=== PATIENT | female | born 1950 | race Two or more races ===

== ENCOUNTER 2024-02-11 01:15 | Inpatient (IN) | payer MEDICARE, BC, SELFPAY ==
[2024-02-11] VITALS (18 sets, daily range): BP systolic 70–121; BP diastolic 27–57; PULSE 73–114; RESP 17–23; TEMP 36.3–39.2; O2SAT 92–100; BMI 29.2
--- NOTE | ~2024-02-11 | CT_ITS ---
EXAMINATION: CT ABDOMEN AND PELVIS WITHOUT CONTRAST CLINICAL INFORMATION: Reason for Exam renal failure, FTT, suspect mets from breast cance COMPARISON: None available. TECHNIQUE: Multidetector volumetric imaging was performed from the superior aspect of the liver through the pubic symphysis. Sagittal and coronal reformatted images were obtained on the technologist's workstation. This CT examination was performed using dose optimization techniques as appropriate, variously including the following: *Automated exposure control *Adjustment of mA and/or kV according to patient size (this includes techniques or standardized protocols for targeted exams where dose is matched to indication/reason for exam; i.e. extremities or head) *Use of iterative reconstruction technique DLP: 1517 mGy-cm FINDINGS: Limited evaluation especially of the upper abdomen due to motion artifact. LUNG BASES: There is elevation of the left hemidiaphragm with adjacent parenchymal opacity which is not adequately assessed without intravenous contrast. A somewhat rounded structure in the posterior left lower lobe measuring up to 3 cm is concerning for a possible mass. LIVER, GALLBLADDER, AND BILIARY TREE: Suboptimal assessment of the liver for masses without intravenous contrast. Branching lucency is present predominantly in the left lobe and to a lesser degree in the right lobe, and in the setting of motion artifact and lack of intravenous contrast it cannot be definitively determine whether this represents pneumobilia or portal venous gas. Gallbladder is not visualized. PANCREAS: Unremarkable. SPLEEN: Unremarkable. ADRENAL GLANDS: Unremarkable. KIDNEYS AND URETERS: No hydronephrosis or obstructing calculus bilaterally. Left renal hypodensity measuring up to 3.3 cm is suspected to represent a cyst; no follow-up recommended. BLADDER: Mildly distended and suboptimally evaluated. GASTROINTESTINAL TRACT: Colonic diverticulosis is noted. No evidence of bowel obstruction or definite wall thickening, with assessment limited in some regions due to incomplete distention. The appendix is unremarkable. No free fluid or free air is seen. ABDOMINAL WALL: Peripherally calcified densities in the bilateral breasts, favored to be chronic. Partially visualized skin defect in the lower lateral right chest wall with thickening. LYMPH NODES: Normal. VASCULAR: Scattered atherosclerotic calcifications. PELVIC VISCERA: There is a predominantly cystic mass in the left adnexa containing some hyperdense components along the superior aspect. Overall this measures up to approximately 10 cm in diameter it is suspicious for an ovarian mass. OSSEOUS STRUCTURES: Degenerative changes are noted in the spine. CT/CT abdomen pelvis wo IV con IMPRESSION: 1. Limited evaluation especially of the upper abdomen due to motion artifact and lack of intravenous contrast. 2. Partially visualized skin defect in the lower lateral right chest wall. Correlation with physical exam is recommended. This could reflect changes of soft tissue infection versus sequelae of the reported history of breast cancer. 3. Branching lucency in the liver, predominantly in the left lobe, which is difficult to determine whether this is pneumobilia or portal venous gas. 4. Large predominantly cystic mass in the left adnexa measuring up to 10 cm, suspicious for an ovarian mass containing some solid components. Recommend gynecological consult and consideration of unenhanced and IV contrast-enhanced MRI of the pelvis as clinically warranted. 5. Elevation of the left hemidiaphragm with adjacent parenchymal opacity suboptimally assessed without intravenous contrast. However, there is a rounded structure in the left lower lobe measuring up to 3 cm, concerning for a possible mass. Electronically signed by: Leandro Maloney MD 02/11/2024 03:52 AM EDT
--- NOTE | ~2024-02-11 | CT_ITS ---
EXAMINATION: CT HEAD WITHOUT CONTRAST CLINICAL INFORMATION: Reason for Exam AMS, fevers, suspect mets from breast cancer COMPARISON: None available. TECHNIQUE: Contiguous axial imaging was performed from the skull base to vertex without intravenous administration of contrast. This CT examination was performed using dose optimization techniques as appropriate, variously including the following: *Automated exposure control *Adjustment of mA and/or kV according to patient size (this includes techniques or standardized protocols for targeted exams where dose is matched to indication/reason for exam; i.e. extremities or head) *Use of iterative reconstruction technique DLP: 1517 mGy-cm FINDINGS: Suboptimal assessment in the absence of intravenous contrast. However, a centrally hypoattenuating mass is present in the right cerebral hemisphere in the region of the external capsule and basal ganglia measuring up to approximately 2.2 cm in diameter. There is slight localized mass effect and suggestion of minimal leftward midline shift. There is soft tissue fullness in the suprasellar region measuring approximately 1.5 similar in diameter, suspicious for a suprasellar mass. There is no evidence of acute intracranial hemorrhage or territorial infarction. Garces to white matter differentiation is well preserved. No extra-axial fluid collections are identified. The ventricles are normal in size. Mild volume loss is noted. The osseous structures and soft tissues are normal. The mastoid air cells and visualized portions of the paranasal sinuses are well-aerated. CT/CT head/brain wo IV con IMPRESSION: 1. Centrally hypoattenuating mass in the right cerebral hemisphere measuring up to approximately 2.2 cm in diameter, suspicious for metastasis given the history of breast cancer. Overall, evaluation for masses would be better performed with pre and postcontrast MRI. 2. Soft tissue fullness in the suprasellar region measuring approximately 1.5 cm, suspicious for a suprasellar mass. This would also be better assessed with MRI. Electronically signed by: Leandro Maloney MD 02/11/2024 04:11 AM EDT
--- NOTE | ~2024-02-11 | XR_ITS ---
EXAMINATION: XR CHEST CLINICAL INFORMATION: Fever COMPARISON: None available. TECHNIQUE: Frontal view of the chest was obtained. FINDINGS: Right IJ port catheter tip lies in the region of the cavoatrial junction. There is elevation of the left hemidiaphragm with adjacent opacification. Trace left pleural effusion cannot be excluded. No focal consolidation identified in the right lung. No evidence of pneumothorax. Cardiac silhouette appears somewhat prominent though it is suboptimally assessed due to the left basilar opacification. Degenerative changes are noted in the spine. XR/XR chest 1V IMPRESSION: Elevated left hemidiaphragm with adjacent opacity which may reflect atelectasis or consolidation. Trace left pleural effusion cannot be excluded. Electronically signed by: Leandro Maloney MD 02/11/2024 03:24 AM EDT
--- NOTE | 2024-02-11 01:29 | ECG_ITS ---
Test Reason : WEAKNESS Blood Pressure : / mmHG Vent. Rate : 108 BPM Atrial Rate : 108 BPM P-R Int : 120 ms QRS Dur : 126 ms QT Int : 414 ms P-R-T Axes : 059 -23 034 degrees QTc Int : 554 ms Sinus tachycardia Right bundle branch block Abnormal ECG No previous ECGs available Referred By: Jennifer Diaz Electronically Signed By:EVANGELINA PEREZ
--- NOTE | 2024-02-11 01:40 | ED.AMS ---
HPI - Altered Mental Status General Chief Complaint: Altered Mental Status Stated Complaint: AMS 1 hr, UTI?, Tachy Source: family and EMS Mode of arrival: EMS Limitations: altered mental status History of Present Illness ED Provider: MARIZA HPI narrative: 73 yo female with PMH of HTN, breast cancer with R breast open draining wound she did chemo in 2019 in [place] but refused further XRT and therapy after has not followed up since then here with family after arriving back from [place] 5 hours ago. She was more confused yesterday. Family noted about 2 hours prior to arrival she started to shake and grab her head. She was more confused and initally refused care but then they called 911. EMS states she was hypotensive 70/40s and responded with a small amount of fluid. Patient altered on arrival cannot provide history MD complaint: altered mental status and weakness Onset (ago): day(s) (1) Timing confirmed by: family member Severity: moderate Consistency of symptoms: constant Context: cancer Associated symptoms: fever, chills, headaches, loss of appetite, malaise and weakness Related Data Allergies Allergy/AdvReac Type Severity Reaction Status Date / Time No Known Allergies Allergy Verified 02/11/24 02:18 Review of Systems Review of Systems: ROS unable to be obtained due to altered mental status PMFSH Past Medical History Source: obtained from family Medical History Breast cancer HTN (hypertension) Social History Social History (Updated 02/11/24 @ 02:05 by Jennifer Diaz DO) Patient Tobacco Use Status: Tobacco use Unknown Advance Directives: No Advance Directives Information Provided: Yes Do you have a plan to hurt others: No Plan Physical Exam ED Vital Signs: Vital Signs - 24 hr 02/11/24 01:30 02/11/24 01:50 02/11/24 01:55 Temperature 102.6 F H Pulse Rate 114 H Pulse Rate [Automated] Respiratory Rate 20 Blood Pressure 95/50 L 94/42 L 88/43 L Pulse Oximetry 97 Oxygen Delivery Method Room Air 02/11/24 02:09 02/11/24 02:26 02/11/24 03:34 Temperature Pulse Rate 106 H 104 H Pulse Rate [Automated] 106 H Respiratory Rate 20 20 Blood Pressure 100/34 L 92/43 L Pulse Oximetry 96 97 Oxygen Delivery Method Room Air Room Air 02/11/24 03:55 02/11/24 04:24 02/11/24 04:35 Temperature 100 F Pulse Rate 104 H 99 97 Pulse Rate [Automated] Respiratory Rate 20 Blood Pressure 89/35 L 78/30 L 72/31 L Pulse Oximetry 96 98 97 Oxygen Delivery Method Room Air 02/11/24 04:39 02/11/24 04:58 Temperature Pulse Rate 98 99 Pulse Rate [Automated] Respiratory Rate 23 H 20 Blood Pressure 75/27 L 82/33 L Pulse Oximetry 97 100 Oxygen Delivery Method Room Air Room Air BMI result Body Mass Index 29.2 Appearance: Somonlent, confused, moderate acute distress. Eyes: Pupils equal, round and reactive to light. ENT: Pharynx dry MM Neck: Normal inspection. Neck supple. CVS: tachyardic heart rate and rhythm. Pulses normal. Chest wall: draining chronic open wound R breast - purulence noted Respiratory: No respiratory distress. Breath sounds normal. Abdomen: Soft and nontender. Skin: Skin warm and dry. pale skin color. Normal skin turgor. Extremities: No lower extremity edema. Neuro: moves all extremities cannot participate in exam Course Course Course Narrative: patient fluids slow to go in as she is bending her arm over and over - has not received her total 3L or albumin at this time will continue to reassess and if she is still hypotensive after fluids may need pressor support 351am Reevaluation(s) Reevaluation #1: family discussion about care of plan 411am they are aware of mass in brain, left lung, ovarian mass, liver pathology I have given them the options of 1. full code and pressors 2. just fluids and antibiotics no aggressive therapy and see what happens 3. hospice they want to call the family Reevaluation #2: repeat discussion with family 443am they are still pending decision aware patient is hypotensive 443am we are still holding off treatments until they give us instruction Reevaluation #3: 515am [employer] per family Medications Administered Discontinued Medications Generic Name Dose Route Start Last Admin Trade Name Freq PRN Reason Stop Dose Admin Acetaminophen 650 mg 02/11/24 01:28 02/11/24 01:55 Acetaminophen Supp 650 Mg Supp.Rect [place] 02/11/24 01:29 650 mg ONCE ONE Administration Fentanyl 25 mcg 02/11/24 03:27 02/11/24 03:32 Fentanyl Citrate/Pf 100 Mcg/2 Ml Vial IVPUSH 02/11/24 03:28 25 mcg ONCE ONE Administration Protocol Lactated Ringer's 1,000 mls @ 999 mls/hr 02/11/24 01:28 02/11/24 03:15 Lr IV 02/11/24 02:28 Infused .Q1H1M ONE Infusion Lactated Ringer's 1,000 mls @ 999 mls/hr 02/11/24 01:30 02/11/24 03:51 Lr IV 02/11/24 02:30 Infused .Q1H1M ONE Infusion Ceftriaxone Sodium 1 gm/ 50 mls @ 100 mls/hr 02/11/24 01:28 02/11/24 02:23 Sodium Chloride IV 02/11/24 01:57 Infused ONCE ONE Infusion Lactated Ringer's 1,000 mls @ 999 mls/hr 02/11/24 02:19 02/11/24 03:57 Lr IV 02/11/24 03:19 Infused .Q1H1M ONE Infusion Vancomycin HCl 2,000 mg in 500 mls @ 250 mls/hr 02/11/24 02:23 02/11/24 05:09 Vancomycin/Ns IV 02/11/24 04:22 Infused ONCE ONE Infusion Albumin Human 100 mls @ 133.333 mls/hr 02/11/24 02:30 02/11/24 04:38 Kedbumin 25 % IV 02/11/24 04:14 Infused Q1H HOMER Infusion Medical Decision Making Medical Decision Making MDM Narrative: 73 yo female with PMH of HTN, breast cancer with R breast open draining wound she did chemo in 2019 here with c/o fevers, AMS - at this time broad differential will start on IVF x 2L, tylenol [place], CXR, CT head for mets, CT abdomen for mets, CXR for pneumonia/mets, IV ceftriaxone. Family aware of plan and agrees. Could also be from wound on R chest. Differential Diagnosis Differential Diagnoses: The differential diagnosis associated with the presentation includes UTI, pneumonia, skin wound, cancer with mets Admission/Observation Consideration of admission/observation: Escalation of care including admission/observation considered admit for hospice family and patient agree - ordered IV fentanyl, IV morphine gtt ordered Consult Healthcare Provider Management of the patient was discussed with: Hospitalist (524am will admit) Lab Data [facility] Lab Attestation statement: I reviewed the patient's lab results. 02/11/24 01:44 02/11/24 01:44 Labs: Lab Results 02/11/24 Range/Units 01:44 WBC 9.6 (4.8-10.8) X10*3/uL RBC 3.55 L (4.20-5.50) X10*6/uL Hgb 10.7 L (12.0-16.0) g/dl Hct 33.3 L (37.0-47.0) % MCV 93.8 (80.0-98.0) fL MCH 30.1 (27.0-33.0) pg MCHC 32.1 (31.0-35.0) g/dl RDW 15.6 (11.0-16.0) % Plt Count 325 (160-400) X10*3/uL MPV 9.7 (9.4-12.3) fL Immature Gran % (Auto) 1.8 H (0.0-0.4) % Neut % (Auto) 53.0 (45-73) % Lymph % (Auto) 26.4 (20-40) % [place] % (Auto) 14.4 H (2-11) % Eos % (Auto) 3.6 (0-4) % Baso % (Auto) 0.8 (0-2) % Lymph # (Auto) 2.5 (1.2-4.9) X10*3/uL [place] # (Auto) 1.4 H (0.1-1.2) X10*3/uL Eos # (Auto) 0.4 (0.0-0.4) X10*3/uL Baso # (Auto) 0.1 (0.0-0.2) X10*3/uL Abs Immat Gran (auto) 0.17 H (0.00-0.03) X10*3/uL Absolute Neuts (auto) 5.1 (2.0-8.3) x10*3/uL Absolute Nucleated RBC 0.000 (0.0-0.012) X10*3/uL Nucleated RBC % (auto) 0.0 (0.0-0.2) /100WBC PT 17.1 H (11.1-13.3) SEC INR 1.4 H (0.9-1.1) Sodium 140 (135-145) mmol/L Potassium 5.7 H (3.3-5.1) mmol/L Chloride 109 H (96-108) mmol/L Carbon Dioxide 18 L (22-29) mmol/L Anion Gap 19 (12-20) BUN 47 H (9-16) mg/dL Creatinine 3.45 H (0.5-1.4) mg/dL Estim Creat Clear Calc TNP Estimated GFR 13 Random Glucose 86 (60-115) mg/dL Lactic Acid 2.6 H* (0.5-2.0) mmol/L Calcium 9.6 (8.4-10.2) mg/dL Magnesium 2.3 (1.6-2.6) mg/dL Total Bilirubin 1.1 H (0.0-1.0) mg/dL Direct Bilirubin 0.3 (0.0-0.5) mg/dL AST 61 H (5-31) U/L ALT 16 (0-31) U/L Alkaline Phosphatase 82 (39-117) U/L Troponin I High Sens 19.7 H (<3.5-17.0) ng/L Total Protein 7.2 (6.5-8.0) g/dL Albumin 2.7 L (3.5-5.0) g/dL Lipase 47 (8-78) U/L Urine Color Dark Yellow Urine Appearance Turbid Urine pH 5.5 (5.0-9.0) Ur Specific [place] 1.010 (1.005-1.025) Urine Protein 30 (1+) H (Neg-Trace) mg/dL Urine Glucose (UA) Negative (Negative) mg/dL Urine Ketones Trace (Negative) mg/dL Urine Blood Small (1+) H (Negative) Urine Nitrite Negative (Negative) Ur Leukocyte Esterase Large (3+) H (Negative) Urine RBC 6-10 H (0-2) /HPF Urine WBC >50 H (0-5) /HPF Ur Squamous Epith Cells 3-5 (0-2) /HPF Urine Bacteria 4+ (None Seen) Hyaline Casts >20 (0-2) /LPF Influenza Type A (PCR) NEGATIVE (Negative) Influenza Type B (PCR) NEGATIVE (Negative) RSV RNA Qual (PCR) NEGATIVE (Negative) SARS-CoV-2 RNA (RT-PCR) NEGATIVE (Negative) Independent Interpretation I performed an independent interpretation of an: EKG, Plain X-Ray (left lung mass) and CT Scan (masses, mets) Interpretation: Rate: 108 Rhythm: sinus tach [place]: left Normal P waves. Normal CHRIS. RBBB ST T wave : inverted t waves V1, V2, no ECTOR qTC: 554 prior studies: no priors The study has been interpreted contemporaneously by me. . Radiology Impression Discussion of test interpretation with radiology: I have reviewed the radiologist's reading. Independent Historian Clinical information obtained from an independent historian. History obtained from or confirmed by: EMS and Other (family) Critical Care Time Critical Care Time Critical Care Time: Yes Total Critical Care Time: 65 Attestation: repeat assessments, IVF x 3, repeat labs, repeat family discussions, admission I attest to this time spent taking care of the patient Discharge Plan Discharge Clinical Impression: Mass, brain, Mental status alteration, Acute renal failure, Acidosis, lactic, Mass of left ovary, Mass of left lung, Acute UTI, Open chest wound Patient Disposition: Admitted As Inpatient Print Language: Uzbek
[2024-02-11] MEDS: Lactated Ringers 1,000 ML 999 ML IV ×3 (01:48→02:59)
[2024-02-11 01:52] LABS: MANUAL DIFF FLAG NO
[2024-02-11] MEDS: cefTRIAXone sodium 1 GM in 0.9 % Sodium Chloride 50 ML IV (01:52)
[2024-02-11 01:54] LABS: Basophils Absolute Auto 0.1 X10*3/uL (0.0-0.2); Basophils Percent Auto 0.8 % (0-2); Eosinophils Absolute Auto 0.4 X10*3/uL (0.0-0.4); Eosinophils Percent Auto 3.6 % (0-4); Hematocrit 33.3 % (37.0-47.0); Hemoglobin 10.7 g/dl (12.0-16.0); Imm Gran Abs Auto 0.17 X10*3/uL (0.00-0.03); Imm Gran Pct Auto 1.8 % (0.0-0.4); Lymphocytes Absolute Auto 2.5 X10*3/uL (1.2-4.9); Lymphocytes Percent Auto 26.4 % (20-40); Mean Corpuscular HGB Conc 32.1 g/dl (31.0-35.0); Mean Corpuscular Hemoglobin 30.1 pg (27.0-33.0); Mean Corpuscular Volume 93.8 fL (80.0-98.0); Mean Platelet Volume 9.7 fL (9.4-12.3); Monocytes Absolute Auto 1.4 X10*3/uL (0.1-1.2); Monocytes Percent Auto 14.4 % (2-11); Neutrophils Absolute Auto 5.1 x10*3/uL (2.0-8.3); Platelet Count 325 X10*3/uL (160-400); Red Blood Count 3.55 X10*6/uL (4.20-5.50); Red Cell Distribution Width 15.6 % (11.0-16.0); White Blood Count 9.6 X10*3/uL (4.8-10.8)
[2024-02-11 01:55] LABS: Appearance Urine Turbid; Color Urine Dark Yellow; Glucose Urine UA Negative (Negative); Leukocyte Esterase Urine Large (3+) (Negative); Nitrite Urine Negative (Negative); PH 5.5 (5.0-9.0); UMIC TRIGGER UACC YES; Urine Blood Small (1+) (Negative); Urine Ketones Trace mg/dL (Negative); Urine Protein 30 (1+) mg/dL (Neg-Trace)
[2024-02-11] MEDS: Acetaminophen Supp 650 MG SUPP.RECT PR (01:55)
[2024-02-11 01:59] LABS: INTERNATIONAL NORM RATIO 1.4 (0.9-1.1); Prothrombin Time 17.1 SEC (11.1-13.3)
--- NOTE | 2024-02-11 02:05 | MHC.EDTECH ---
EKG delay due to patient care
[2024-02-11 02:06] LABS: Bacteria Urine 4+ (None Seen); Hyaline Casts Urine >20 /LPF (0-2); UACC Culture Trigger YES; WBC Urine >50 /HPF (0-5)
[2024-02-11 02:08] LABS: Lactic Acid 2.6 mmol/L (0.5-2.0)
[2024-02-11 02:14] LABS: Troponin-I High Sensitivity 19.7 ng/L (<3.5-17.0)
[2024-02-11 02:18] LABS: Alanine Aminotransferase 16 U/L (0-31); Albumin Level 2.7 g/dL (3.5-5.0); Alkaline Phosphatase 82 U/L (39-117); Anion Gap 19 (12-20); Aspartate Amino Transferase 61 U/L (5-31); Bilirubin Direct 0.3 mg/dL (0.0-0.5); Bilirubin Total 1.1 mg/dL (0.0-1.0); Blood Urea Nitrogen 47 mg/dL (9-16); Calcium 9.6 mg/dL (8.4-10.2); Carbon Dioxide 18 mmol/L (22-29); Chloride 109 mmol/L (96-108); Estimated Glomerular Filt Rate 13; Glucose Random 86 mg/dL (60-115); Lipase 47 U/L (8-78); Magnesium 2.3 mg/dL (1.6-2.6); Potassium 5.7 mmol/L (3.3-5.1); Sodium 140 mmol/L (135-145); Total Protein 7.2 g/dL (6.5-8.0)
[2024-02-11 02:31] LABS: Influenza A PCR NEGATIVE (Negative); Influenza B PCR NEGATIVE (Negative); Resp Syncy Virus RNA Qual PCR NEGATIVE (Negative); SARS COV2 PCR INHOUSE NEGATIVE (Negative)
[2024-02-11] MEDS: vancomycin/NS 2,000 MG/500 ML PLAST..BAG 250 MG IV (02:56)
[2024-02-11] MEDS: Albumin Human 25 % 100 ML 133.33 ML IV ×2 (03:14→03:51)
--- NOTE | 2024-02-11 03:28 | PC.NURSE ---
Pt with continued complaints of leg pain. Provider made aware.
[2024-02-11] MEDS: fentaNYL citrate/PF 100 MCG/2 ML VIAL 25 MCG IVPUSH ×2 (03:32→05:26)
[2024-02-11 03:50] LABS: Reflex Lactate? Lactic Acid Added
--- NOTE | 2024-02-11 04:35 | PC.NURSE ---
Provider aware of low BP. Provider discussing goals of care with family at this time.
--- NOTE | 2024-02-11 04:42 | PC.NURSE ---
Son at bedside states they are waiting on phone call from other family members to make further decisions at this time.
--- NOTE | 2024-02-11 05:10 | PC.NURSE ---
Vancomycin infusion completed at this time. Redness noted to pts face noted. No other rash noted to pts body at this time. Provider aware.
--- NOTE | 2024-02-11 05:26 | PC.NURSE ---
MOLST form signed by pts son at this time with Dr. Diaz. Pt is to be comfort measures only at this time.
--- NOTE | 2024-02-11 05:53 | PC.NURSE ---
Pt placed on bedpan, cleansed of fecal matter and repositioned in bed.
--- NOTE | 2024-02-11 06:05 | PC.NURSE ---
Pharmacy called for QA AUTOMATION DEVELOPER morphine drip. States IV tech will be in at 7am and the drip will be delivered rosibel after that. This service writer will administer any PRNs as necessary.
--- NOTE | 2024-02-11 06:27 | PM.IMHP ---
History of Present Illness Date of Service: 02/11/24 Chief Complaint: Altered mentation This is a 73-year-old female with pertinent history of breast cancer status post chemo in 2019 but refused further treatment or follow-up, hypertension who was brought to the emergency department for evaluation of fever and altered mentation. Unable to obtain history from the patient. History obtained with the help of family (son and [id number]) at bedside. Patient lives in [place] and was brought to [facility] by family. She was found to be more confused, complaining of headache and found to be febrile with chills and increased respiratory rate at home on the day of presentation. The patient was initially refusing care but got more confused and hence the family decided to bring her to the ER as they could not care for her. In the emergency department, patient was found to be hypotensive, febrile with temperature 102.6 degrees and urine concerning for UTI. Imaging concerning for ovarian mass, lung mass, possible liver mass and brain metastasis. 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 Review of Systems Review of Systems: Yes Unobtainable due to mental condition and Unobtainable due to mental status PMFSH Medical History Breast cancer HTN (hypertension) Pertinent family history: Not significant Social History Patient Tobacco Use Status: Tobacco use Unknown Advance Directives: No Advance Directives Information Provided: Yes Do you have a plan to hurt others: No Plan Meds Allergies Allergy/AdvReac Type Severity Reaction Status Date / Time No Known Allergies Allergy Verified 02/11/24 02:18 Active Medications: Current Medications Acetaminophen (Acetaminophen 325 Mg Tablet) 650 mg PO Q4H PRN PRN Reason: Fever >/= 100, Pain, mild 1-3 Acetaminophen (Acetaminophen 325 Mg Tablet) 650 mg PO Q6H PRN PRN Reason: Pain, Mild (Pain Scale 1-3), fever or headache Docusate Sodium (Docusate Sodium 100 Mg Capsule) 100 mg PO BEDTIME HOMER Glycopyrrolate (Glycopyrrolate 0.2 Mg/Ml Vial) 0.2 mg IVPUSH Q6H PRN PRN Reason: Respiratory secretions Morphine Sulfate (Morphine Sulfate/Ns) 100 mg in 100 mls @ 0 mls/hr IVCONT .Q0M HOMER; Protocol Lorazepam (Lorazepam 2 Mg/Ml Vial) 0.5 mg IVPUSH Q4H PRN PRN Reason: Myoclonic twitching/anxiety Melatonin (Melatonin 3 Mg Tablet) 6 mg PO BEDTIME PRN PRN Reason: Insomnia Ondansetron HCl (Ondansetron Odt 4 Mg Tab.Rapdis) 4 mg TRANSLINGU Q8H PRN PRN Reason: Nausea and Vomiting Pharmacy Consult (Consult Rx Vancomycin Dosing) 1 each MISCELLANE DAILY PRN PRN Reason: Consult order Sodium Chloride (0.9 % Sodium Chloride Flush 3 Ml Syringe) 3 ml IVFLUSH QSHIFT [facility] Physical Exam Vital Signs and Narrative: Vital Signs: Last Vital Signs Temp 98.7 F 02/11/24 05:53 Pulse 94 02/11/24 05:53 Resp 22 H 02/11/24 05:53 BP 82/33 L 02/11/24 04:58 Pulse Ox 97 02/11/24 05:53 O2 Del Method Room Air 02/11/24 05:53 BMI result Body Mass Index 29.2 Elderly female lying in bed in no distress Neck supple, no JVD Tachycardic with regular heart rate, S1-S2 heard Tachypnea present Abdomen soft nontender, no guarding, no rigidity Patient is awake but not oriented to self, place, person not time, not following commands Psych: Lethargic No pedal edema Results Labs 02/11/24 01:44 02/11/24 01:44 Labs: Laboratory Results - last 24 hr 02/11/24 02/11/24 01:44 05:09 MCV 93.8 MCH 30.1 MCHC 32.1 RDW 15.6 Plt Count 325 MPV 9.7 Immature Gran % (Auto) 1.8 H Neut % (Auto) 53.0 Lymph % (Auto) 26.4 [place] % (Auto) 14.4 H Eos % (Auto) 3.6 Baso % (Auto) 0.8 Lymph # (Auto) 2.5 [place] # (Auto) 1.4 H Eos # (Auto) 0.4 Baso # (Auto) 0.1 Abs Immat Gran (auto) 0.17 H Absolute Neuts (auto) 5.1 Absolute Nucleated RBC 0.000 Nucleated RBC % (auto) 0.0 PT 17.1 H INR 1.4 H Anion Gap 19 Estim Creat Clear Calc TNP Estimated GFR 13 Random Glucose 86 Lactic Acid 2.6 H* Lactic Acid F/U @ 2Hr 2.0 Calcium 9.6 Magnesium 2.3 Total Bilirubin 1.1 H Direct Bilirubin 0.3 AST 61 H ALT 16 Alkaline Phosphatase 82 Troponin I High Sens 19.7 H Total Protein 7.2 Albumin 2.7 L Lipase 47 Urine Color Dark Yellow Urine Appearance Turbid Urine pH 5.5 Ur Specific [place] 1.010 Urine Protein 30 (1+) H Urine Glucose (UA) Negative Urine Ketones Trace Urine Blood Small (1+) H Urine Nitrite Negative Ur Leukocyte Esterase Large (3+) H Urine RBC 6-10 H Urine WBC >50 H Ur Squamous Epith Cells 3-5 Urine Bacteria 4+ Hyaline Casts >20 Influenza Type A (PCR) NEGATIVE Influenza Type B (PCR) NEGATIVE RSV RNA Qual (PCR) NEGATIVE SARS-CoV-2 RNA (RT-PCR) NEGATIVE Imaging Radiologist's Impressions: Impressions Chest X-Ray 02/11/24 01:29 IMPRESSION: Elevated left hemidiaphragm with adjacent opacity which may reflect atelectasis or consolidation. Trace left pleural effusion cannot be excluded. Electronically signed by: Leandro Maloney MD 02/11/2024 03:[address] 02/11/24 02:23 IMPRESSION: 1. Centrally hypoattenuating mass in the right cerebral hemisphere measuring up to approximately 2.2 cm in diameter, suspicious for metastasis given the history of breast cancer. Overall, evaluation for masses would be better performed with pre and postcontrast MRI. 2. Soft tissue fullness in the suprasellar region measuring approximately 1.5 cm, suspicious for a suprasellar mass. This would also be better assessed with MRI. Electronically signed by: Leandro Maloney MD 02/11/2024 04:11 AM [facility] Abdomen/Pelvis CT 02/11/24 02:30 IMPRESSION: 1. Limited evaluation especially of the upper abdomen due to motion artifact and lack of intravenous contrast. 2. Partially visualized skin defect in the lower lateral right chest wall. Correlation with physical exam is recommended. This could reflect changes of soft tissue infection versus sequelae of the reported history of breast cancer. 3. Branching lucency in the liver, predominantly in the left lobe, which is difficult to determine whether this is pneumobilia or portal venous gas. 4. Large predominantly cystic mass in the left adnexa measuring up to 10 cm, suspicious for an ovarian mass containing some solid components. Recommend gynecological consult and consideration of unenhanced and IV contrast-enhanced MRI of the pelvis as clinically warranted. 5. Elevation of the left hemidiaphragm with adjacent parenchymal opacity suboptimally assessed without intravenous contrast. However, there is a rounded structure in the left lower lobe measuring up to 3 cm, concerning for a possible mass. Electronically signed by: Leandro Maloney MD 02/11/2024 03:52 AM EDT Assessment and Plan (1) Mass of left lung: Status: Acute (2) Mass of left ovary: Status: Acute (3) Mass, brain: Status: Acute (4) Mental status alteration: Qualifiers: Altered mental status type: delirium Qualified Code(s): R41.0 - Disorientation, unspecified Status: Acute (5) Acute renal failure: Qualifiers: Acute renal failure type: unspecified Qualified Code(s): N17.9 - Acute kidney failure, unspecified Status: Acute (6) Acidosis, lactic: Status: Acute (7) Acute UTI: Status: Acute (8) Open chest wound: Qualifiers: Encounter type: subsequent encounter Laterality: right Qualified Code(s): S21.101D - Unspecified open wound of right front wall of thorax without penetration into thoracic cavity, subsequent encounter Status: Acute Plan This is a 73-year-old female with pertinent history of breast cancer status post chemo in 2019 but refused further treatment or follow-up, hypertension who was brought to the emergency department for evaluation of fever and altered mentation. Assessment: #. Mass of left ovary, left lung mass, right cerebral hemisphere mass (high suspicion for brain Mets) in a patient with history of breast cancer who previous refused treatment #. Septic shock due to acute UTI #. Acute kidney injury with hyperkalemia #. Acute lactic acidosis due to sepsis #. 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 Discussed with son and [id number] at bedside. They agree that the patient would not want any treatment or any life-prolonging measures especially in the setting of underlying metastatic cancer. No further blood draws or measurement of vital signs. Will admit patient with IV morphine drip for analgesia and IV Ativan p.r.n. to make her comfortable. They would like to focus on quality of life. Hospice consulted. Quality Stroke Does the patient have a stroke diagnosis?: No VTE Prior VTE?: No VTE Risk Level:: Medical - moderate - high VTE Device Contraindication: Treatment Not Indicated VTE Drug Contraindication: Treatment Not Indicated
--- NOTE | 2024-02-11 06:48 | PC.NURSE ---
Pt denies any pain at this time per son. Appears comfortable at this time.
[2024-02-11] MEDS: Morphine Sulfate/NS 100 MG/100 ML PLAST..BAG IVCONT (08:09)
[2024-02-11] MEDS: ondansetron HCL 4 MG/2 ML VIAL IVPUSH (08:17)
--- NOTE | 2024-02-11 09:00 | PC.NURSE ---
Patient/ family provided with end of life resources. Assisted oob with asisst to bedside commode. Patient with large Bm, voided large amount of clear yellow urine. While oob to commode patient with dry heaves, medicated per mar. Provided with coffee/ crackers, tolerating well at this time. Family at bedside, patient denies pain or discomfort
--- NOTE | 2024-02-11 09:59 | PC.NURSE ---
Nursing FIELD SERVICE CONSULTANT flow sheet completed and placed in patients chart
--- NOTE | 2024-02-11 10:23 | PM.EVENT ---
Event Note Date of Service: 02/11/24 Event Note: Seen and evaluated this morning Continue comfort measures Morphine IV Zofran IV PRN Pending hospice team evaluation CW to follow Time Spent With Patient Time: Total time managing care of this patient today ____ minutes.
--- NOTE | 2024-02-11 11:12 | PC.NURSE ---
Patient resting quietly, breathing even and unlabored. RR 16. Family at bedside
--- NOTE | 2024-02-11 11:14 | PHA.MEDREC ---
Pharmacy Consult ? Medication Reconciliation Pharmacy has completed the medication reconciliation, called pt's daughter and spoke to her. Daughter - Zenaida said she has just come from [place] and has no filled in the [place] but gets medications in [place], she read off of prescription bottle that had been missing the names but she could deduct the first couple of letters and with help, was able to agreed to meds stated. Was able to read the doses and directions on medication bottles. She mentioned that for the sucralfate she dissolves it in water and only takes it once daily. All other meds added as stated by the daughter and last taken on 02/09.
--- NOTE | 2024-02-11 12:58 | PC.NURSE ---
Patient easily abusable to verbal stimuli, denies pain or discomfort. Dressing to right breast area was small amount of ss / purulent discharge. Area cleasned, dressing changed. Family at bedside.
--- NOTE | 2024-02-11 14:36 | MHC.CM.PN ---
pt was refered to [facility] /hospice for an imformational and to [employer] for [employer] mick..[facility]
--- NOTE | 2024-02-11 15:37 | PC.NURSE ---
Continues to rest comfortably, breathing even and unlabored. family at bedside
--- NOTE | 2024-02-11 16:36 | PC.NURSE ---
Hospice met with patient/patients family. Hospice stating plan is to hopefully bring patient home on Sun and supplies will be ordered for the family
--- NOTE | 2024-02-11 19:19 | PC.NURSE ---
Family requesting for wirer maintenance pump to be stopped d/t patient being sleepy. Provider aware and d/c order. 78mls remained in cartridge wasted with another RN present
--- NOTE | 2024-02-11 22:23 | PC.NURSE ---
Pt arrived to [facility] at 210 on a stretcher accompanied by ED staff and daughter in law Zenaida, pt is somnolent, opens eyes briefly and moans upon arrival, unable to verbalized any need, LS are dim, on RA, ABD large SNT + BS, able to move all extremities, weak, incontinent of urine, Purewick placed in use after pericare, noted with wound on the right side of the chest with dressing soiled with serosang discharge, dressing changed, noted with red raw rashes on the abd folds and left under breast, cleansed and interdry applied, bed alarm on , in room camera placed, air loss bed placed, made comfortable on bed, restfull after.
[2024-02-12] MEDS: 0.9 % Sodium Chloride Flush 3 ML SYRINGE IVFLUSH ×3 (01:04→19:29)
[2024-02-12] MEDS: Morphine Sulfate 2 MG/ML CARTRIDGE IVPUSH ×4 (03:13→17:49)
[2024-02-12 03:29] VITALS: RESP 16
[2024-02-12 06:00] VITALS: RESP 20
--- NOTE | 2024-02-12 09:07 | PC.NURSE ---
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 Fungal rash noted on breasts and abd folds, wound on Right Breast noted changed by mine shifter around 3AM. Dressing CDI. Inc of stool and urine, pure wick in place. Hourly Rounding and monitoring for patient needs.
--- NOTE | 2024-02-12 10:40 | P.PNIM_ITS ---
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 Objective Data Active Medications Acetaminophen (Acetaminophen 325 Mg Tablet) 650 mg PO Q4H PRN PRN Reason: Fever >/= 100, Pain, mild 1-3 Acetaminophen (Acetaminophen 325 Mg Tablet) 650 mg PO Q6H PRN PRN Reason: Pain, Mild (Pain Scale 1-3), fever or headache Calcium Carbonate (Calcium Carbonate 750 Mg Tab.Chew) 750 mg PO Q4H PRN PRN Reason: Heartburn Docusate Sodium (Docusate Sodium 100 Mg Capsule) 100 mg PO BEDTIME HOMER Last Admin: 02/11/24 21:35 Dose: Not Given Documented By: OWEN Non-Admin Reason: somnolent Glycopyrrolate (Glycopyrrolate 0.2 Mg/Ml Vial) 0.2 mg IVPUSH Q6H PRN PRN Reason: Respiratory secretions Lorazepam (Lorazepam 2 Mg/Ml Vial) 0.5 mg IVPUSH Q4H PRN PRN Reason: Myoclonic twitching/anxiety Magnesium Hydroxide (Milk Of Magnesia 30 Ml Oral.Susp) 30 ml PO DAILY PRN PRN Reason: Constipation Melatonin (Melatonin 3 Mg Tablet) 6 mg PO BEDTIME PRN PRN Reason: Insomnia Morphine Sulfate (Morphine Sulfate 2 Mg/Ml Cartridge) 2 mg IVPUSH Q1H PRN PRN Reason: Pain, Severe (7-10)/ RR>/=24 Last Admin: 02/12/24 07:32 Dose: 2 mg Documented By: SÁNCHEZ Ondansetron HCl (Ondansetron Odt 4 Mg Tab.Rapdis) 4 mg TRANSLINGU Q8H PRN PRN Reason: Nausea and Vomiting Ondansetron HCl (Ondansetron Hcl 4 Mg/2 Ml Vial) 4 mg IVPUSH Q8H PRN PRN Reason: Nausea and Vomiting Last Admin: 02/11/24 08:17 Dose: 4 mg Documented By: ALLAN Sodium Chloride (0.9 % Sodium Chloride Flush 3 Ml Syringe) 3 ml IVFLUSH QSHIFT [facility] Last Admin: 02/12/24 07:32 Dose: 3 ml Documented By: SUSANALM Labs 02/11/24 01:44 02/11/24 01:44 Microbiology Microbiology Results: Microbiology 02/11/24 Unknown Urine Culture - Preliminary Urine Catheterized - Straight Catheter Gram negative ben 02/11/24 01:43 Blood Culture - Preliminary Blood - Venous No growth after 24 hours. 02/11/24 01:43 Blood Culture - Preliminary Blood - Venous No growth after 24 hours. Assessment and Plan (1) Acute UTI: Status: Acute (2) Mass of left lung: Status: Acute (3) Mass of left ovary: Status: Acute (4) Acidosis, lactic: Status: Acute (5) Acute renal failure: Status: Acute Plan This is a 73-year-old female with pertinent history of breast cancer status post chemo in 2019 but refused further treatment or follow-up, hypertension who was brought to the emergency department for evaluation of fever and altered mentation. found to have the following: # Mass of left ovary, left lung mass, right cerebral hemisphere mass (high suspicion for brain Mets) in a patient with history of breast cancer who previous refused treatment # Sepsis due to acute UTI # Acute kidney injury with hyperkalemia # Acute lactic acidosis due to sepsis # Acute metabolic encephalopathy in the setting of septic shock + brain mass Now on Comfort measures per family decision. Met with Hospice with a plan for home hospice tomorrow. - IV Morphine PRN, can switch to SL on discharge - IV Ativan PRN for restlessness, can be switched also - Hospice team following Discussed with son and [id number] at bedside. They agree that the patient would not want any treatment or any life-prolonging measures especially in the setting of underlying metastatic cancer. No further blood draws or measurement of vital signs. Will admit patient with IV morphine drip for analgesia and IV Ativan p.r.n. to make her comfortable. They would like to focus on quality of life. Hospice consulted. Quality Stroke Does the patient have a stroke diagnosis?: No VTE Prior VTE?: No VTE Risk Level:: Medical - moderate - high VTE Device Contraindication: Treatment Not Indicated VTE Drug Contraindication: Treatment Not Indicated
--- NOTE | 2024-02-12 10:54 | MHC.CM.PN ---
Addendum entered by Zenia Rosa RN 02/12/24 11:38: Family & hospice on board for 11am dc tomorrow 02/12. BLS transport booked. Original Note: Per [facility], informational complete and family onboard w/ plan for home w/ hospice. CM spoke with daughter Zenaida, who will be 25/12 sap director. Plan is for equipment to be delivered today. Goal to dc patient tomorrow at 11am.
--- NOTE | 2024-02-12 19:25 | PC.NURSE ---
Addendum entered by Ada Warner RN 02/12/24 23:12: Handoff report given to oncoming RN at 23:00. Addendum entered by Ada Warner RN 02/12/24 21:55: Patient's [id number] now present at bedside, planning to stay with patient tonight. Recliner set up for her and tea provided per her request; comfort cart in room. She states the patient appears comfortable at this time and states she does not feel she needs any medications at this time; encouraged to call should this change. Health Diagnostics Teacher assessment at this time RR 16, patent appearing comfortable without any distress. Daughter in law agreeable to repositioning. Pt repositioned and tolerated. Original Note: Assumed care of patient at 19:00. Patient is comfort measures. On assessment pt is resting in bed with eyes closed, breathing observed even and unlabored RR 20 at this time. No distress, patient appears comfortable. Extremities warm x4 to touch with +pulses. Environmental modifications made (lights dim, calming sounds/music) and verbal reassurance provided. Bed alarm on and safety measures in place.
--- NOTE | 2024-02-13 02:08 | PC.NURSE ---
Patient appears to be sleeping with no outward signs of pain. Respirations even, non-labored. Repositioned by staff. Visitor is at bedside, introduced myself to visitor around midnight. Visitor agreed at that time that patient seems comfortable. Nature sounds playing softly in room with lights dimmed. Patient and visitor currently sleeping.
--- NOTE | 2024-02-13 08:12 | P.PNIM_ITS ---
Subjective Subjective Date of Service: 02/13/24 Physical Exam 2 Vital Signs: Vital Signs: Last Vital Signs Temp 97.4 F 02/11/24 21:16 Pulse 95 02/11/24 21:16 Resp 20 02/12/24 06:00 BP 121/57 L 02/11/24 21:16 Pulse Ox 92 02/11/24 21:16 O2 Del Method Room Air 02/11/24 21:16 BMI result Body Mass Index 29.2 Objective Data Active Medications Acetaminophen (Acetaminophen 325 Mg Tablet) 650 mg PO Q4H PRN PRN Reason: Fever >/= 100, Pain, mild 1-3 Acetaminophen (Acetaminophen 325 Mg Tablet) 650 mg PO Q6H PRN PRN Reason: Pain, Mild (Pain Scale 1-3), fever or headache Calcium Carbonate (Calcium Carbonate 750 Mg Tab.Chew) 750 mg PO Q4H PRN PRN Reason: Heartburn Docusate Sodium (Docusate Sodium 100 Mg Capsule) 100 mg PO BEDTIME HOMER Last Admin: 02/12/24 19:24 Dose: Not Given Documented By: LESA Non-Admin Reason: LOG DECK TENDER; unable to take PO safely due AMS Glycopyrrolate (Glycopyrrolate 0.2 Mg/Ml Vial) 0.2 mg IVPUSH Q6H PRN PRN Reason: Respiratory secretions Lorazepam (Lorazepam 2 Mg/Ml Vial) 0.5 mg IVPUSH Q4H PRN PRN Reason: Myoclonic twitching/anxiety Magnesium Hydroxide (Milk Of Magnesia 30 Ml Oral.Susp) 30 ml PO DAILY PRN PRN Reason: Constipation Melatonin (Melatonin 3 Mg Tablet) 6 mg PO BEDTIME PRN PRN Reason: Insomnia Morphine Sulfate (Morphine Sulfate 2 Mg/Ml Cartridge) 2 mg IVPUSH Q1H PRN PRN Reason: Pain, Severe (7-10)/ RR>/=24 Last Admin: 02/12/24 17:49 Dose: 2 mg Documented By: SÁNCHEZ Ondansetron HCl (Ondansetron Odt 4 Mg Tab.Rapdis) 4 mg TRANSLINGU Q8H PRN PRN Reason: Nausea and Vomiting Ondansetron HCl (Ondansetron Hcl 4 Mg/2 Ml Vial) 4 mg IVPUSH Q8H PRN PRN Reason: Nausea and Vomiting Last Admin: 02/11/24 08:17 Dose: 4 mg Documented By: ALLAN Sodium Chloride (0.9 % Sodium Chloride Flush 3 Ml Syringe) 3 ml IVFLUSH QSHIFT [facility] Last Admin: 02/12/24 19:29 Dose: 3 ml Documented By: LESA Labs 02/11/24 01:44 02/11/24 01:44 Microbiology Microbiology Results: Microbiology 02/11/24 Unknown Urine Culture - Final Urine Catheterized - Straight Catheter Escherichia coli 02/11/24 01:43 Blood Culture - Preliminary Blood - Venous No growth after 48 hours. 02/11/24 01:43 Blood Culture - Preliminary Blood - Venous No growth after 48 hours. Assessment and Plan (1) Acute UTI: Status: Acute (2) Mass of left lung: Status: Acute (3) Mass of left ovary: Status: Acute (4) Acidosis, lactic: Status: Acute (5) Acute renal failure: Status: Acute Plan This is a 73-year-old female with pertinent history of breast cancer status post chemo in 2019 but refused further treatment or follow-up, hypertension who was brought to the emergency department for evaluation of fever and altered mentation. found to have the following: # Mass of left ovary, left lung mass, right cerebral hemisphere mass (high suspicion for brain Mets) in a patient with history of breast cancer who previous refused treatment # Sepsis due to acute UTI # Acute kidney injury with hyperkalemia # Acute lactic acidosis due to sepsis # Acute metabolic encephalopathy in the setting of septic shock + brain mass Now on Comfort measures per family decision. Met with Hospice with a plan for home hospice tomorrow. - IV Morphine PRN, can switch to SL on discharge - IV Ativan PRN for restlessness, can be switched also - Hospice team following Discussed with son and [id number] at bedside. They agree that the patient would not want any treatment or any life-prolonging measures especially in the setting of underlying metastatic cancer. No further blood draws or measurement of vital signs. Will admit patient with IV morphine drip for analgesia and IV Ativan p.r.n. to make her comfortable. They would like to focus on quality of life. Hospice consulted. Quality Stroke Does the patient have a stroke diagnosis?: No VTE Prior VTE?: No VTE Risk Level:: Medical - moderate - high VTE Device Contraindication: Treatment Not Indicated VTE Drug Contraindication: Treatment Not Indicated
[2024-02-13] MEDS: 0.9 % Sodium Chloride Flush 3 ML SYRINGE IVFLUSH (08:31)
--- NOTE | 2024-02-13 08:32 | MHC.CM.PN ---
Patient cleared for dc home on hospice w/ [facility]. Will transport via BLS at 11am. OCTAVIA Aguilar, and RN aware. OCTAVIA will send rx to [facility] pharmacy to be delivered to room prior to dc. RN aware.
--- NOTE | 2024-02-13 10:34 | PM.DS ---
DS: Providers Provider Date of Service: 02/13/24 Date of admission: 02/11/24 09:26 Date of discharge: 02/13/24 Primary care physician: Storm Physician Attending physician on admission: Julieth Kim Attending physician on discharge: Joe Juarez Discharging clinician: Anjelica Gonzalez DS: Diagnosis Discharge Diagnosis (1) Acute UTI: Status: Acute (2) Mass of left lung: Status: Acute (3) Mass of left ovary: Status: Acute (4) Acidosis, lactic: Status: Acute (5) Acute renal failure: Status: Acute DS: Summary Hospital Course Hospital Course: HPI on admission by Dr. Kim 02/10: Chief Complaint: Altered mentation This is a 73-year-old female with pertinent history of breast cancer status post chemo in 2019 but refused further treatment or follow-up, hypertension who was brought to the emergency department for evaluation of fever and altered mentation. Unable to obtain history from the patient. History obtained with the help of family (son and [id number]) at bedside. Patient lives in [place] and was brought to [facility] by family. She was found to be more confused, complaining of headache and found to be febrile with chills and increased respiratory rate at home on the day of presentation. The patient was initially refusing care but got more confused and hence the family decided to bring her to the ER as they could not care for her. In the emergency department, patient was found to be hypotensive, febrile with temperature 102.6 degrees and urine concerning for UTI. Imaging concerning for ovarian mass, lung mass, possible liver mass and brain metastasis. 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 Hospital course: Pt with metastatic breast cancer s/p chemo in 2019 who requested further treatment or follow up found to have metastasis to the left ovary, left lung, and brain admitted to the hospital on comfort measures only after presenting with septic shock due to UTI with metabolic ecnepahlopathy and acute kidney injury. She was febrile to 102.6 and tachycardic in the ED with hypotension which did not respond to IVF. Creat on arrival 3.45, baseline unknown and lactic acidosis of 2.6. Initially treated with IV ceftriaxone for suspected UTI. However, discussion was had with family at bedside in the ED, and decision was made to transition to comfort measures only on admission with goal of setting up discharge services with hospice. She was admitted on IV morphine, ativan, glycopyrrolate. Transition home with hospice through [facility] with family support for comfort measures only: -tylenol supp prn for mild pain/fevers -Bisocodyl supp 10mg daily -Haloperidol 0.5mg PO prn q4h for n/v or agitation -Hycosamine sub 0.125mg q4h prn secretions -Lorazepam 0.5mg q4h soln prn anxiety/dyspnea Status at Discharge Functional status at discharge: bed bound Overall status at discharge: patient is not back to baseline Time Attestation Discharge Coordination Time (in mins): 35 Quality: Safe Use of Opioids Does Pt have an Active Cancer Diagnosis on the Problem List?: Yes Opioid Measure Date for [facility] Report: 01/14/24 Opioid Measure Time for [facility] Report: 10:53 Quality: Stroke Does the patient have a stroke diagnosis?: No Physical Exam Vital Signs: Vital Signs: Last Vital Signs Temp 97.4 F 02/11/24 21:16 Pulse 95 02/11/24 21:16 Resp 20 02/12/24 06:00 BP 121/57 L 02/11/24 21:16 Pulse Ox 92 02/11/24 21:16 O2 Del Method Room Air 02/11/24 21:16 BMI result Body Mass Index 29.2 Constitutional - No apparent distress, sleeping comfortably, respirations even and unlabored DS: Data Data Completed and Pending Labs on day of discharge: Preliminary micro results at discharge 02/11/24 01:43 Blood Culture - Preliminary Blood - Venous No growth after 48 hours. 02/11/24 01:43 Blood Culture - Preliminary Blood - Venous No growth after 48 hours. Discharge Plan Discharge Anticipated Discharge Date/Time: 02/13/24 10:17 Patient Disposition: Hospice - Home Discharge Diagnosis: Metastatic cancer, hospice/comfort measures Referrals: [facility] [Outside] - 1 Day ([facility] will provide hospice services starting today) Physician,Unknown J [Primary Care Provider] - 1 Week Discharge Medications: New acetaminophen 650 mg suppository 650 mg MT Q6H PRN (Reason: mild pain/fever) Qty: 50 0RF bisacodyl 10 mg suppository 10 mg MT DAILY Qty: 30 0RF haloperidol 0.5 mg tablet 0.5 mg PO Q4H PRN (Reason: nausea and vomiting, agitation) Qty: 30 0RF hyoscyamine sulfate 0.125 mg tablet, sublingual 0.125 mg sublingual QID PRN (Reason: secretions) Qty: 30 0RF lorazepam 1 mg/0.5 mL syringe 1 mg PO Q4H PRN (Reason: anxiety/dyspnea) Qty: 30 0RF morphine concentrate 100 mg/5 mL (20 mg/mL) solution 5 mg PO Q1H PRN (Reason: pain/dyspnea) Qty: 118 0RF Rx Instructions: Partial Fill upon patient request. Discontinued multivitamin Tablet 1 tab PO DAILY sucralfate 1 gram Tablet 1 g PO DAILY lisinopril 20 mg Tablet 20 mg PO DAILY ondansetron HCl 4 mg Tablet 4 mg PO Q8H PRN (Reason: nausea or vomiting) famotidine 20 mg Tablet 20 mg PO DAILY Discharge Orders: Discharge Order (Routine); Ordered 02/13/24 Ordered By: Anjelica Gonzalez Diet: Advance to usual diet Activity on Discharge: As tolerated Stand Alone Forms: Patient Portal Discharge page Print Language: Japanese Care Plan Goals: Transition home on hospice with comfort measures Health Concerns: Metastatic breast cancer with mets to brain, ovary, and left lung mass Sepsis due to UTI Acute kidney injury Metabolic encephalopathy Plan of Treatment: Transition home with hospice for comfort measures only -tylenol supp prn for mild pain/fevers -Bisocodyl supp 10mg daily -Haloperidol 0.5mg PO prn q4h for n/v or agitation -Hycosamine sub 0.125mg q4h prn secretions -Lorazepam 0.5mg q4h soln prn anxiety/dyspnea Assessment: See above. See discharge summary
== END 2024-02-13 11:40 | disposition hospice, home (50) | DRG 951 ==
LOC: HO.ED 05:25 → HO.EDOVER 06:43 → HO.S3 19:53
PROVIDERS: Admitting Provider Student in an Organized Health Care Education/Training Program; Emergency Provider Emergency Medicine; Visit Provider Physician Assistant
DX: Z51.5 Encounter for palliative care (principal); A41.9 Sepsis, unspecified organism; R65.21 Severe sepsis with septic shock; G93.41 Metabolic encephalopathy; N39.0 Urinary tract infection, site not specified; N17.9 Acute kidney failure, unspecified; C79.31 Secondary malignant neoplasm of brain; E87.21 Acute metabolic acidosis; C79.62 Secondary malignant neoplasm of left ovary; C78.02 Secondary malignant neoplasm of left lung; L98.499 Non-pressure chronic ulcer of skin of other sites with unspecified severity; C50.919 Malignant neoplasm of unspecified site of unspecified female breast; E87.5 Hyperkalemia; Z20.822 Contact with and (suspected) exposure to COVID-19; Z79.899 Other long term (current) drug therapy
CPT/HCPCS: 0241U; 36415; 70450; 71045; 74176; 80048; 80076; 81001; 83605; 83690; 83735; 84484; 85025; 85610; 87040; 87086; 87088; 87186; 93005; 99221; 99285; J0696; J2270; J2405; J3010; J3370; J7120; P9047

== ENCOUNTER → 2024-02-11 02:21 | Outpatient (BNV) | payer BC, SELFPAY | PROVIDERS: Emergency Provider Emergency Medicine; Visit Provider Student in an Organized Health Care Education/Training Program | DX: N39.0 Urinary tract infection, site not specified (principal); R91.8 Other nonspecific abnormal finding of lung field; N83.8 Other noninflammatory disorders of ovary, fallopian tube and broad ligament; E87.20 Acidosis, unspecified; N17.9 Acute kidney failure, unspecified | CPT/HCPCS: 99223; 99232; 99239; 99499 ==